=== PATIENT | female | born 2005 | race Caucasian/White ===

== ENCOUNTER 2025-06-17 15:07 | Emergency (ER) | payer OTHER, SELFPAY ==
--- NOTE | ~2025-06-17 | XR_ITS ---
EXAMINATION: XR hip RT 2V w AP pelvis DATE: 06/17/2025 15:57 INDICATION: Iliac crest and posterior low back pain post fall on ice TECHNIQUE: Anteroposterior view of the pelvis and anteroposterior and frog-leg lateral views of the right hip were obtained. COMPARISON: None. FINDINGS: Bone alignment is normal. No fracture. Joint spaces are normal. Soft tissues are unremarkable. IMPRESSION: 1. Normal radiographs of the pelvis and right hip. Reviewed, dictated and finalized at location A. [employer]
[2025-06-17 15:15] VITALS: BP 113/75; PULSE 85; RESP 16; TEMP 36.8; O2SAT 100
--- NOTE | 2025-06-17 15:50 | ED_ITS ---
HPI - Extremity Injury (Lower) General Chief Complaint: Extremity Injury, Lower Stated Complaint: Lower back/hip pain Time Seen by Provider: 06/17/25 15:37 Source: patient and RN notes reviewed Mode of arrival: ambulatory Limitations: no limitations History of Present Illness HPI Narrative: 19-year-old female patient presents today complaining of right low back and posterior lateral hip pain after slipping and falling on some icy stairs approximately 3 hours prior to arrival. Denies any additional injuries. Denies numbness or tingling in the leg or foot. She currently rates her pain at rest 3/10, which increases with movement of the hip and palpation of the area. No OTC treatment prior to arrival. Related Data Home Medications ?Medication ?Instructions ?Recorded ?Confirmed ?Last Taken ?Type fluoxetine 10 mg capsule 10 mg PO QPM 06/17/25 Unknown History sertraline 25 mg tablet 25 mg PO Q24H 06/17/2506/17 Unknown History Allergies Allergy/AdvReac Type Severity Reaction Status Date / Time No Known Allergies Allergy Verified 06/17/25 15:17 [facility] Comments At time of signature, I have reviewed and agree with nursing past medical, surgical, social and family history unless otherwise noted. Please see nursing chart for further information. There is no relevant family history pertinent to the presenting complaint Exam Narrative: GENERAL: Well-appearing, well-nourished, and in no acute distress. HEAD: Normocephalic, atraumatic. EYES: EOMI. No redness or drainage. Conjunctivae normal. ENT: Mucous membranes pink and moist. NECK: Normal AROM. CHEST: No respiratory distress. MUSCULOSKELETAL: No bony tenderness of the thoracic or lumbar spine. Mild right lower lumbar paraspinal muscle tenderness extending to the right iliac crest. No ecchymosis or edema noted. Distal sensation intact. Saddle sensation intact. Capillary refill normal. 5/5 strength in BLE EXTREMITIES: Normal range of motion. No edema. SKIN: Warm, dry, no rash. Capillary refill normal. Normal skin turgor. NEURO: No focal deficits. Alert and oriented x3. Gait steady. PSYCH: Normal affect. No signs of depression or anxiety. Course Course Level of Care: Express Care Visit Vital Signs Vital signs: Vital Signs Temperature 98.3 F 06/17/25 15:15 Pulse Rate 85 06/17/25 15:15 Respiratory Rate 16 12/01/25 15:15 Blood Pressure 113/75 06/17/25 15:15 Pulse Oximetry 100 06/17/25 15:15 Oxygen Delivery Room Air 06/17/25 15:15 Temperature 98.3 F 06/17/25 15:15 Pulse Rate 85 06/17/25 15:15 Respiratory Rate 16 06/17/25 15:15 Blood Pressure 113/75 06/17/25 15:15 Pulse Oximetry 100 06/17/25 15:15 Oxygen Delivery Room Air 06/17/25 15:15 MDM MDM Narrative Medical decision making narrative: 19-year-old female patient presents today complaining of right low back and posterior lateral hip pain after slipping and falling on some icy stairs approximately 3 hours prior to arrival. Denies any additional injuries. Denies numbness or tingling in the leg or foot. She currently rates her pain at rest 3/10, which increases with movement of the hip and palpation of the area. No OTC treatment prior to arrival. Upon arrival, tenderness to the right low back and right iliac crest. X-ray negative. Recommend NSAIDs, ice, rest. Vital signs stable. Patient agrees with plan. Anticipatory guidance given. Differential Diagnosis Differential Diagnosis: Fracture, contusion Imaging Data Radiologist's impression: ITS Impressions Hip/Pelvis X-Ray 06/17/25 16:02 IMPRESSION: 1. Normal radiographs of the pelvis and right hip. Critical Care Time Critical Care Time Critical Care Time: No Discharge Plan Discharge Clinical Impression: Contusion of right side of back Qualifiers: Encounter type: initial encounter Qualified Code(s): S20.221A - Contusion of right back wall of thorax, initial encounter Fall due to ice or snow Qualifiers: Encounter type: initial encounter Qualified Code(s): W00.9XXA - Unspecified fall due to ice and snow, initial encounter Patient Disposition: Home Condition: Stable Instructions: Contusion in Adults (ED) Additional Instructions: Your x-rays are negative today. Rest and ice the area. Taking anti- inflammatories such as Aleve or ibuprofen for discomfort. Follow-up with your PCP in 7-10 days if symptoms are not improving. Patient Language: Wolof Prescriptions: No Action fluoxetine 10 mg capsule 10 mg PO QPM sertraline 25 mg tablet 25 mg PO Q24H Follow-up/Referrals: PHYSICIAN,CORRECTION OFFICER [facility] [Primary Care Provider, Internal Medicine] Time of Disposition: 16:09
== END 2025-06-17 16:13 | disposition home or self-care (01) ==
PROVIDERS: Emergency Provider Nurse Practitioner
DX: S30.0XXA Contusion of lower back and pelvis, initial encounter (principal); W00.0XXA Fall on same level due to ice and snow, initial encounter
CPT/HCPCS: 73502; 99203; G0463